=== PATIENT | male | born 1960 | race Caucasian/White ===

== ENCOUNTER 2018-11-30 21:37 | Emergency (ER) | payer SELFPAY ==
--- NOTE | 2018-11-30 21:53 | Event Note ---
ED Screening Note Date of service: 11/30/18 Time: 21:51 ED Screening Note: This is a 58 y.o. M. that presents to the ER with elevated blood pressure today. Reports headache, dizziness, and palpitations. PMH of HTN Patient states he didn't take lisinopril 20 mg yesterday. Nonsmoker This initial assessment/diagnostic orders/clinical plan/treatment(s) is/are subject to change based on patients health status, clinical progression and re- assessment by fellow clinical providers in the ED. Further treatment and workup at subsequent clinical providers discretion. Patient/guardian urged not to elope from the ED as their condition may be serious if not clinically assessed and managed. Initial orders include:
[2018-11-30 23:28] VITALS: BP 149/90
--- NOTE | 2018-11-30 23:30 | Emergency Department Report ---
ED General Adult HPI - General Chief complaint: High BP Stated complaint: HBP Time Seen by Provider: 11/30/18 21:48 Source: patient Mode of arrival: Ambulatory Limitations: No Limitations - History of Present Illness Initial comments: This is a 58 y.o. M. that presents to the ER with elevated blood pressure today. Denies headache, dizziness, and palpitations. PMH of HTN Patient states he didn't take lisinopril 20 mg yesterday. Nonsmoker states no symptoms at this time. states he just wants his bp checked denies any symptoms Onset/Timin -: days(s) Severity scale (0 -10): 1 Improves with: medication Worsens with: none Associated Symptoms: denies other symptoms Treatments Prior to Arrival: none - Related Data Home Medications Medication Instructions Recorded Confirmed Last Taken Lisinopril [Zestril TAB] 20 mg PO QDAY 03/19/15 03/19/15 Unknown Omeprazole [PriLOSEC] 20 mg PO QDAY 03/19/15 03/19/15 03/19/15 Previous Rx's Medication Instructions Recorded Last Taken Type Dicyclomine [Bentyl] 10 mg PO QID PRN #20 capsule 03/19/15 Unknown Rx Famotidine [Pepcid] 20 mg PO BID #10 tablet 03/19/15 Unknown Rx Lisinopril [Zestril TAB] 20 mg PO QDAY #14 tablet 03/19/15 Unknown Rx Allergies Allergy/AdvReac Type Severity Reaction Status Date / Time No Known Allergies Allergy Verified 03/19/15 04:44 ED Review of Systems ROS: Stated complaint: HBP Other details as noted in HPI Constitutional: denies: chills, fever Eyes: denies: eye pain, eye discharge, vision change ENT: denies: ear pain, throat pain Respiratory: denies: cough, shortness of breath, wheezing Cardiovascular: denies: chest pain, palpitations Endocrine: no symptoms reported Gastrointestinal: denies: abdominal pain, nausea, diarrhea Genitourinary: denies: urgency, dysuria Musculoskeletal: denies: back pain, joint swelling, arthralgia Skin: denies: rash, lesions Neurological: denies: headache, weakness, paresthesias Psychiatric: denies: anxiety, depression Hematological/Lymphatic: denies: easy bleeding, easy bruising ED Past Medical Hx - Past Medical History Previous Medical History?: Yes Hx Hypertension: Yes Additional medical history: BARRETTS ESOPHAGEAL - Surgical History Past Surgical History?: No - Social History Smoking Status: Never Smoker Substance Use Type: None - Medications Home Medications: Home Medications Medication Instructions Recorded Confirmed Last Taken Type Dicyclomine [Bentyl] 10 mg PO QID PRN #20 capsule 03/19/15 Unknown Rx Famotidine [Pepcid] 20 mg PO BID #10 tablet 03/19/15 Unknown Rx Lisinopril [Zestril TAB] 20 mg PO QDAY 03/19/15 03/19/15 Unknown History Lisinopril [Zestril TAB] 20 mg PO QDAY #14 tablet 03/19/15 Unknown Rx Omeprazole [PriLOSEC] 20 mg PO QDAY 03/19/15 03/19/15 03/19/15 History ED Physical Exam - General Limitations: No Limitations General appearance: alert, in no apparent distress - Head Head exam: Present: atraumatic, normocephalic - Eye Eye exam: Present: normal appearance - ENT ENT exam: Present: mucous membranes moist - Neck Neck exam: Present: normal inspection, full ROM. Absent: lymphadenopathy - Respiratory Respiratory exam: Present: normal lung sounds bilaterally. Absent: respiratory distress, wheezes, stridor, chest wall tenderness - Cardiovascular Cardiovascular Exam: Present: regular rate, normal rhythm, normal heart sounds. Absent: systolic murmur, diastolic murmur, rubs, gallop - GI/Abdominal GI/Abdominal exam: Present: soft, normal bowel sounds - Rectal Rectal exam: Present: deferred - Extremities Exam Extremities exam: Present: normal inspection - Back Exam Back exam: Present: normal inspection, full ROM. Absent: tenderness, CVA tenderness (R), CVA tenderness (L), muscle spasm, paraspinal tenderness, rash noted - Neurological Exam Neurological exam: Present: alert, oriented X3, CN II-XII intact, normal gait, reflexes normal - Psychiatric Psychiatric exam: Present: normal affect, normal mood - Skin Skin exam: Present: warm, dry, intact, normal color. Absent: rash ED Course Vital Signs 11/30/18 11/30/18 11/30/18 21:41 21:55 22:48 Temperature 97.3 F L Pulse Rate 77 71 Respiratory 18 16 16 Rate Blood Pressure 159/94 Blood Pressure 154/94 [Left] O2 Sat by Pulse 97 Oximetry ED Medical Decision Making - Medical Decision Making pt has fill bp rx provided by pcp bp is improved, there are no symptoms pt will follow up with pcp in 2-3 as scheduled. Critical care attestation.: If time is entered above; I have spent that time in minutes in the direct care of this critically ill patient, excluding procedure time. ED Disposition Clinical Impression: HTN (hypertension) Qualifiers: Hypertension type: essential hypertension Qualified Code(s): I10 - Essential (primary) hypertension Disposition: TO HOME OR SELFCARE Is pt being admited?: No Does the pt Need Aspirin: No Condition: Stable Instructions: Hypertension (ED) Additional Instructions: take medications as prescribed Referrals: ALISA DAILY MD [Primary Care Provider] - 3-5 Days Forms: Work/School Release Form(ED) Time of Disposition: 23:35
== END 2018-11-30 23:45 | disposition home or self-care (01) ==
LOC: ED 21:37
DX: I10 Essential (primary) hypertension (principal); Z98.890 Other specified postprocedural states

== ENCOUNTER 2018-12-14 06:00 | Emergency (ER) | payer SELFPAY ==
[2018-12-14 06:11] VITALS: BP 140/86
[2018-12-14 06:43] LABS: Basophils % (Auto) 0.4 % (0.0-1.8); Eosinophils # (Auto) 0.1 K/mm3 (0.0-0.4); Eosinophils % (Auto) 2.1 % (0.0-4.3); Hematocrit 46.7 % (35.5-45.6); Hemoglobin 15.8 gm/dl (11.8-15.2); Lymphocytes # (Auto) 2.6 K/mm3 (1.2-5.4); Lymphocytes % (Auto) 43.4 % (13.4-35.0); Mean Corpuscular HGB Conc 34 % (32-34); Mean Corpuscular Volume 98 fl (84-94); Monocytes # (Auto) 0.4 K/mm3 (0.0-0.8); Monocytes % (Auto) 7.2 % (0.0-7.3); Platelet Count 214 K/mm3 (140-440); Red Blood Count 4.77 M/mm3 (3.65-5.03); Red Cell Distribution Width 13.2 % (13.2-15.2)
[2018-12-14] MEDS ORDERED: NACL 0.9% 1000 ML 1,000 ML IV ONE (06:51)
[2018-12-14] MEDS ORDERED: TORADOL IV ONE ×2 (06:51→09:03)
[2018-12-14] MEDS ORDERED: ZOFRAN IV ONE (06:51)
[2018-12-14 07:01] LABS: Bilirubin,Urine NEG (Negative); Blood,Urine LG (Negative); Color,Urine Yellow (Yellow); Mucus,Urine FEW /HPF; Protein,Urine <15 mg/dL mg/dL (Negative); Urobilinogen,Urine < 2.0 mg/dL (<2.0)
[2018-12-14 07:02] LABS: RBC,Urine < 1.0 /HPF (0.0-6.0)
[2018-12-14 07:10] LABS: Alanine Aminotransferase 22 units/L (7-56); Albumin 4.2 g/dL (3.9-5); BUN/Creatinine Ratio 21; Blood Urea Nitrogen 19 mg/dL (9-20); Calcium 9.7 mg/dL (8.4-10.2); Hemolysis Index 4
[2018-12-14] MEDS ORDERED: BENTYL IM ONE (07:31)
[2018-12-14] MEDS ORDERED: PEPCID IV ONE (07:31)
[2018-12-14] MEDS ORDERED: REGLAN IV ONE (07:31)
--- NOTE | 2018-12-14 07:36 | Cat Scan Report ---
CT abdomen pelvis wo con INDICATION: Patient complains of LEFT lower abdominal pain with nausea and vomiting off and on x 1 w [place].. TECHNIQUE: All CT scans at this location are performed using the following dose modulation technique: Automated exposure control. CONTRAST: None. COMPARISON: None available. CT ABDOMEN: The right kidney contains a 2 mm nonobstructing stone 2.7 cm cyst at the upper pole. Mode rate distention of the left renal collecting system and ureter extends the level of a 6 mm stone just distal to the ureterovesical junction. The remaining parenchymal organs are unremarkable other than a benign-appearing 2.5 cm left hepatic cyst. Negative for abdominal mass, fluid collection or inflammation. The bowel is not dilated or thickened. The gallbladder contains calcified stones. CT PELVIS: Negative for more distal ureteral stone, pelvic fluid collection or inflammation. The appe ndix is normal. Moderate prostatomegaly has associated calcification. IMPRESSION: 1. 6 mm stone just distal to the left UVJ with moderate obstruction. 2. Nonobstructing right calyceal stone. 3. Calcified gallstones. 4. Moderate prostatomegaly. Signer Name: Gerber Recio MD Signed: 12/14/2018 7:32 AM Workstation Name: [employer]
--- NOTE | 2018-12-14 08:51 | Emergency Department Report ---
ED Abdominal Pain HPI - General Chief Complaint: Abdominal Pain Stated Complaint: LEFT ABD PAIN Time Seen by Provider: 12/14/18 07:22 Source: patient Mode of arrival: Ambulatory Limitations: No Limitations, Language Barrier - History of Present Illness Initial Comments: This is a 58-year-old male who presents to ED complaining of left-sided abdominal pain radiating towards the back that started about 5 months ago and has worsened in the past for 5 days. Patient states pain is throbbing in nature that's gone back and forth from his left frontal abdomen to his left flank and the back. Patient states pain is about a 8 out of 10 intensity. He denies any fever, nausea vomiting or diarrhea. MD Complaint: abdominal pain Severity scale (0 -10): 10 - Related Data Home Medications Medication Instructions Recorded Confirmed Last Taken Lisinopril [Zestril TAB] 20 mg PO QDAY 03/19/15 03/19/15 Unknown Omeprazole [PriLOSEC] 20 mg PO QDAY 03/19/15 03/19/15 03/19/15 Previous Rx's Medication Instructions Recorded Last Taken Type Dicyclomine [Bentyl] 10 mg PO QID PRN #20 capsule 03/19/15 Unknown Rx Famotidine [Pepcid] 20 mg PO BID #10 tablet 03/19/15 Unknown Rx Lisinopril [Zestril TAB] 20 mg PO QDAY #14 tablet 03/19/15 Unknown Rx Ketorolac [Toradol] 10 mg PO Q6H PRN #30 tablet 12/14/18 Unknown Rx Tamsulosin [Flomax] 0.4 mg PO QDAY #10 cap 12/14/18 Unknown Rx traMADol [Ultram 50 MG tab] 50 mg PO Q6HR PRN #15 tablet 12/14/18 Unknown Rx Allergies Allergy/AdvReac Type Severity Reaction Status Date / Time No Known Allergies Allergy Verified 03/19/15 04:44 ED Review of Systems ROS: Stated complaint: LEFT ABD PAIN Other details as noted in HPI Comment: All other systems reviewed and negative ED Past Medical Hx - Past Medical History Previous Medical History?: Yes Hx Hypertension: Yes Additional medical history: BARRETTS ESOPHAGEAL, CHRONIC GAStTRITIS - Surgical History Past Surgical History?: No - Social History Smoking Status: Never Smoker Substance Use Type: None - Medications Home Medications: Home Medications Medication Instructions Recorded Confirmed Last Taken Type Dicyclomine [Bentyl] 10 mg PO QID PRN #20 capsule 03/19/15 Unknown Rx Famotidine [Pepcid] 20 mg PO BID #10 tablet 03/19/15 Unknown Rx Lisinopril [Zestril TAB] 20 mg PO QDAY 03/19/15 03/19/15 Unknown History Lisinopril [Zestril TAB] 20 mg PO QDAY #14 tablet 03/19/15 Unknown Rx Omeprazole [PriLOSEC] 20 mg PO QDAY 03/19/15 03/19/15 03/19/15 History Ketorolac [Toradol] 10 mg PO Q6H PRN #30 tablet 12/14/18 Unknown Rx Tamsulosin [Flomax] 0.4 mg PO QDAY #10 cap 12/14/18 Unknown Rx traMADol [Ultram 50 MG tab] 50 mg PO Q6HR PRN #15 tablet 12/14/18 Unknown Rx ED Physical Exam - General Limitations: No Limitations, Language Barrier General appearance: alert, in no apparent distress - Head Head exam: Present: atraumatic, normocephalic - Eye Eye exam: Present: normal appearance - ENT ENT exam: Present: mucous membranes moist - Neck Neck exam: Present: normal inspection - Respiratory Respiratory exam: Present: normal lung sounds bilaterally. Absent: respiratory distress - Cardiovascular Cardiovascular Exam: Present: regular rate, normal rhythm. Absent: systolic murmur, diastolic murmur, rubs, gallop - GI/Abdominal GI/Abdominal exam: Present: soft, normal bowel sounds. Absent: distended, tenderness - Rectal Rectal exam: Present: deferred - Extremities Exam Extremities exam: Present: normal inspection - Back Exam Back exam: Present: normal inspection - Neurological Exam Neurological exam: Present: alert, oriented X3 - Psychiatric Psychiatric exam: Present: normal affect, normal mood - Skin Skin exam: Present: warm, dry, intact, normal color. Absent: rash ED Course Vital Signs 12/14/18 06:08 Temperature 98.9 F Pulse Rate 62 Respiratory 18 Rate Blood Pressure 140/86 O2 Sat by Pulse 98 Oximetry - Reevaluation(s) Reevaluation #1: 12/14/18 08:52 After patient received a liter of fluids, pain medications patient is reports to feeling better and states that his pain level is come down to 4 out of 10. P atient is sitting comfortably in his room. ED Medical Decision Making - Lab Data Result diagrams: 12/14/18 02:47 12/14/18 02:47 Laboratory Last Values WBC 5.9 K/mm3 (4.5-11.0) 12/14/18 02:47 RBC 4.77 M/mm3 (3.65-5.03) 12/14/18 02:47 Hgb 15.8 gm/dl (11.8-15.2) H 12/14/18 02:47 Hct 46.7 % (35.5-45.6) H 12/14/18 02:47 MCV 98 fl (84-94) H 12/14/18 02:47 MCH 33 pg (28-32) H 12/14/18 02:47 MCHC 34 % (32-34) 12/14/18 02:47 RDW 13.2 % (13.2-15.2) 12/14/18 02:47 Plt Count 214 K/mm3 (140-440) 12/14/18 02:47 Lymph % (Auto) 43.4 % (13.4-35.0) H 12/14/18 02:47 [place] % (Auto) 7.2 % (0.0-7.3) 12/14/18 02:47 Eos % (Auto) 2.1 % (0.0-4.3) 12/14/18 02:47 Baso % (Auto) 0.4 % (0.0-1.8) 12/14/18 02:47 Lymph # 2.6 K/mm3 (1.2-5.4) 12/14/18 02:47 [place] # 0.4 K/mm3 (0.0-0.8) 12/14/18 02:47 Eos # 0.1 K/mm3 (0.0-0.4) 12/14/18 02:47 Baso # 0.0 K/mm3 (0.0-0.1) 12/14/18 02:47 Seg Neutrophils % 46.9 % (40.0-70.0) 12/14/18 02:47 Seg Neutrophils # 2.8 K/mm3 (1.8-7.7) 12/14/18 02:47 Sodium 138 mmol/L (137-145) 12/14/18 02:47 Potassium 4.2 mmol/L (3.6-5.0) 12/14/18 02:47 Chloride 99.7 mmol/L (98-107) 12/14/18 02:47 Carbon Dioxide 25 mmol/L (22-30) 12/14/18 02:47 18 mmol/L 12/14/18 02:47 BUN 19 mg/dL (9-20) 12/14/18 02:47 0.9 mg/dL (0.8-1.5) 12/14/18 02:47 Estimated GFR > 60 ml/min 12/14/18 02:47 21 % 12/14/18 02:47 Glucose 144 mg/dL (75-100) H 12/14/18 02:47 Calcium 9.7 mg/dL (8.4-10.2) 12/14/18 02:47 0.90 mg/dL (0.1-1.2) 12/14/18 02:47 AST 19 units/L (5-40) 12/14/18 02:47 ALT 22 units/L (7-56) 12/14/18 02:47 68 units/L (35-129) 12/14/18 02:47 7.1 g/dL (6.3-8.2) 12/14/18 02:47 4.2 g/dL (3.9-5) 12/14/18 02:47 1.4 % 12/14/18 02:47 33 units/L (13-60) 12/14/18 02:47 Yellow (Yellow) 12/14/18 02:47 Slightly-cloudy (Clear) 12/14/18 02:47 5.0 (5.0-7.0) 12/14/18 02:47 Ur Specific [place] 1.019 (1.003-1.030) 12/14/18 02:47 <15 mg/dl mg/dL (Negative) 12/14/18 02:47 Neg mg/dL (Negative) 12/14/18 02:47 Neg mg/dL (Negative) 12/14/18 02:47 Lg (Negative) 12/14/18 02:47 Neg (Negative) 12/14/18 02:47 Neg (Negative) 12/14/18 02:47 < 2.0 mg/dL (<2.0) 12/14/18 02:47 Ur Leukocyte Esterase Neg (Negative) 12/14/18 02:47 2.0 /HPF (0.0-6.0) 12/14/18 02:47 < 1.0 /HPF (0.0-6.0) 12/14/18 02:47 U Epithel Cells (Auto) < 1.0 /HPF (0-13.0) 12/14/18 02:47 Few /HPF 12/14/18 02:47 - Radiology Data Radiology results: report reviewed, image reviewed cc: PAMELA HUGHES, KIZZY CT abdomen pelvis wo con INDICATION: Patient complains of LEFT lower abdominal pain with nausea and vomiting off and on x 1 week.. TECHNIQUE: All CT scans at this location are performed using the following dose modulation technique: Automated exposure control. CONTRAST: None. COMPARISON: None available. CT ABDOMEN: The right kidney contains a 2 mm nonobstructing stone 2.7 cm cyst at the upper pole. Moderate distention of the left renal collecting system and ureter extends the level of a 6 mm stone just distal to the ureterovesical junction. The remaining parenchymal organs are unremarkable other than a benign-appearing 2.5 cm left hepatic cyst. Negative for abdominal mass, fluid collection or inflammation. The bowel is not dilated or thickened. The gallbladder contains calcified stones. CT PELVIS: Negative for more distal ureteral stone, pelvic fluid collection or inflammation. The appendix is normal. Moderate prostatomegaly has associated calcification. IMPRESSION: 1. 6 mm stone just distal to the left UVJ with moderate obstruction. 2. Nonobstructing right calyceal stone. 3. Calcified gallstones. 4. Moderate prostatomegaly. Signer Name: Gerber Recio MD Signed: 12/14/2018 7:32 AM Workstation Name: [id number] Transcribed By: ES Dictated By: Gerber Recio MD Electronically Authenticated By: Gerber Recio MD Signed Date/Time: 12/14/18 0732 - Medical Decision Making 58-year-old male presents with renal stone causing abdominal pain. All labs within normal limits there is no evidence of leukocytosis. Patient reports feeling better after being medicated. Discussed patient it is important that he follows up with the urologist. Urologist referral given to patient. CT scan shows left right renal stones and gallbladder classified stones, see reported above. Discussed his findings with the patient. Discussed with patient follow-up this minute. Medicines are normal patient is stable patient is in no acute distress at this time. Critical care attestation.: If time is entered above; I have spent that time in minutes in the direct care of this critically ill patient, excluding procedure time. ED Disposition Clinical Impression: Acute abdominal pain, Renal calculus, bilateral Disposition: DC- TO HOME OR SELFCARE Is pt being admited?: No Does the pt Need Aspirin: No Condition: Stable Instructions: Kidney Stones (ED), Ureteroscopy (GEN), How to Strain Your Urine (ED) Additional Instructions: Make sure to follow up with the primary care physician as discussed. Make sure you follw up with the urologist. Take all your medications as you've been prescribed. If you have any worsening symptoms or develop new symptoms please return to ED immediately. Prescriptions: Tamsulosin [Flomax] 0.4 mg PO QDAY #10 cap Ketorolac [Toradol] 10 mg PO Q6H PRN #30 tablet PRN Reason: Pain traMADol [Ultram 50 MG tab] 50 mg PO Q6HR PRN #15 tablet PRN Reason: Pain Referrals: HAYLIE TERRELLROCIOSPENCER MD LEANNE [Primary Care Provider] - 3-5 Days TAMARA WINN MD [Staff Physician] - 3-5 Days Forms: Work/School Release Form(ED) Time of Disposition: 08:59
[2018-12-14] MEDS ORDERED: TORADOL ONE (09:07)
== END 2018-12-14 09:31 | disposition home or self-care (01) ==
LOC: ED 06:00
DX: N20.0 Calculus of kidney (principal); I10 Essential (primary) hypertension; Z79.899 Other long term (current) drug therapy
CPT/HCPCS: 36415; 74176; 80053; 81001; 83690; 85025; 96361; 96374; 96375; 96376; 99284; J1885; J2405; J2765; J7030; J0500

== ENCOUNTER 2020-02-07 14:43 | Emergency (ER) | payer SELFPAY ==
[2020-02-07 20:12] VITALS: BP 151/81
--- NOTE | 2020-02-07 20:20 | Emergency Department Report ---
- General Chief complaint: Extremity Problem,Nontraumatic Stated complaint: RT FOOT CELLULITIS Time Seen by Provider: 02/07/20 19:42 Source: patient Mode of arrival: Ambulatory Limitations: No Limitations - History of Present Illness Initial comments: Chief complaint: "I do not want the infection going into my body." HPI: This is a 59-year-old male who presents with right foot infection. He was evaluated by orthopedic surgeon with radiograph. He states that he did not have bone involvement or fracture. Patient's foot became red starting at the right pinky toe. Extending to the right lateral portion of the foot. Patient was seen by his primary physician. He was given 2 injections of antibiotics by 12 hours. He was not given prescription for antibiotics. 2 days ago purulent drainage began at the right toe. Patient has history of hypertension, renal calculus. No history of diabetes. MD complaint: rash, abscess/boil, discoloration -: Gradual, week(s) (1) Location: R foot Severity: mild Consistency: constant Improves with: none Worsens with: none Associated symptoms: denies other symptoms - Related Data Home Medications Medication Instructions Recorded Confirmed Last Taken Omeprazole [PriLOSEC] 20 mg PO QDAY 03/19/15 03/19/15 03/19/15 lisinopriL [Zestril TAB] 20 mg PO QDAY 03/19/15 03/19/15 Unknown Previous Rx's Medication Instructions Recorded Last Taken Type Dicyclomine [Bentyl] 10 mg PO QID PRN #20 capsule 03/19/15 Unknown Rx Famotidine [Pepcid] 20 mg PO BID #10 tablet 03/19/15 Unknown Rx lisinopriL [Zestril TAB] 20 mg PO QDAY #14 tablet 03/19/15 Unknown Rx Ketorolac [Toradol] 10 mg PO Q6H PRN #30 tablet 12/14/18 Unknown Rx Tamsulosin [Flomax] 0.4 mg PO QDAY #10 cap 12/14/18 Unknown Rx traMADoL [Ultram 50 MG tab] 50 mg PO Q6HR PRN #15 tablet 12/14/18 Unknown Rx Sulfamethoxazole/Trimethoprim 1 each PO BID 10 Days #20 tablet 02/07/20 Unknown Rx [Bactrim DS TAB] cephALEXin [Keflex] 500 mg PO TID 10 Days #30 cap 02/07/20 Unknown Rx Allergies Allergy/AdvReac Type Severity Reaction Status Date / Time No Known Allergies Allergy Verified 03/19/15 04:44 Abscess Boil HPI - HPI Chief Complaint: Extremity Problem,Nontraumatic Stated Complaint: RT FOOT CELLULITIS Time Seen by Provider: 02/07/20 19:42 Duration: >1 Week Location: Lower Extremity Severity: Mild History: Yes Purulent Drainage, No Fever, No Pain, No Numbness, No Foreign Body, No Previous History, No Insect Bite Home Medications: Home Medications Medication Instructions Recorded Confirmed Last Taken Omeprazole [PriLOSEC] 20 mg PO QDAY 03/19/15 03/19/15 03/19/15 lisinopriL [Zestril TAB] 20 mg PO QDAY 03/19/15 03/19/15 Unknown Previous Rx's Medication Instructions Recorded Last Taken Type Dicyclomine [Bentyl] 10 mg PO QID PRN #20 capsule 03/19/15 Unknown Rx Famotidine [Pepcid] 20 mg PO BID #10 tablet 03/19/15 Unknown Rx lisinopriL [Zestril TAB] 20 mg PO QDAY #14 tablet 03/19/15 Unknown Rx Ketorolac [Toradol] 10 mg PO Q6H PRN #30 tablet 12/14/18 Unknown Rx Tamsulosin [Flomax] 0.4 mg PO QDAY #10 cap 12/14/18 Unknown Rx traMADoL [Ultram 50 MG tab] 50 mg PO Q6HR PRN #15 tablet 12/14/18 Unknown Rx Sulfamethoxazole/Trimethoprim 1 each PO BID 10 Days #20 tablet 02/07/20 Unknown Rx [Bactrim DS TAB] cephALEXin [Keflex] 500 mg PO TID 10 Days #30 cap 02/07/20 Unknown Rx Allergies/Adverse Reactions: Allergies Allergy/AdvReac Type Severity Reaction Status Date / Time No Known Allergies Allergy Verified 03/19/15 04:44 ED Review of Systems ROS: Stated complaint: RT FOOT CELLULITIS Other details as noted in HPI Constitutional: denies: fever, malaise Respiratory: denies: cough, shortness of breath Gastrointestinal: denies: abdominal pain, nausea, vomiting Skin: rash, lesions ED Past Medical Hx - Past Medical History Previous Medical History?: Yes Hx Hypertension: Yes Additional medical history: BARRETTS ESOPHAGEAL, CHRONIC GAStTRITIS, HIATAL HERNIA - Social History Smoking Status: Former Smoker Substance Use Type: None - Medications Home Medications: Home Medications Medication Instructions Recorded Confirmed Last Taken Type Dicyclomine [Bentyl] 10 mg PO QID PRN #20 capsule 03/19/15 Unknown Rx Famotidine [Pepcid] 20 mg PO BID #10 tablet 03/19/15 Unknown Rx Omeprazole [PriLOSEC] 20 mg PO QDAY 03/19/15 03/19/15 03/19/15 History lisinopriL [Zestril TAB] 20 mg PO QDAY 03/19/15 03/19/15 Unknown History lisinopriL [Zestril TAB] 20 mg PO QDAY #14 tablet 03/19/15 Unknown Rx Ketorolac [Toradol] 10 mg PO Q6H PRN #30 tablet 12/14/18 Unknown Rx Tamsulosin [Flomax] 0.4 mg PO QDAY #10 cap 12/14/18 Unknown Rx traMADoL [Ultram 50 MG tab] 50 mg PO Q6HR PRN #15 tablet 12/14/18 Unknown Rx Sulfamethoxazole/Trimethoprim 1 each PO BID 10 Days #20 tablet 02/07/20 Unknown Rx [Bactrim DS TAB] cephALEXin [Keflex] 500 mg PO TID 10 Days #30 cap 02/07/20 Unknown Rx ED Physical Exam - General Limitations: No Limitations General appearance: alert, in no apparent distress - Head Head exam: Present: atraumatic, normocephalic - Eye Eye exam: Present: normal appearance - Respiratory Respiratory exam: Absent: respiratory distress - Neurological Exam Neurological exam: Present: alert, oriented X3 - Psychiatric Psychiatric exam: Present: normal affect, normal mood - Skin Skin exam: Present: other (Right foot: 3 pustules right lateral volar region of right fifth digit with mild erythema along the lateral portion of the right foot) ED Course Vital Signs 02/07/20 02/07/20 02/07/20 14:54 19:38 19:46 Temperature 98 F Pulse Rate 59 L Respiratory 18 Rate Blood Pressure 152/73 Blood Pressure 139/89 [Right] O2 Sat by Pulse 98 100 99 Oximetry 02/07/20 20:01 Temperature Pulse Rate Respiratory Rate Blood Pressure 151/81 Blood Pressure [Right] O2 Sat by Pulse 98 Oximetry ED Medical Decision Making - Medical Decision Making Clinical impression: Mild foot cellulitis with small draining toe abscess. Patient prescribed Keflex and Bactrim. Refer to parts counter sales person. I used Welsh language line principal statistical programmer [phone] to obtain history and provide discharge education. Critical care attestation.: If time is entered above; I have spent that time in minutes in the direct care of this critically ill patient, excluding procedure time. ED Disposition Clinical Impression: Cellulitis of right foot, Abscess of toe of right foot Disposition: - TO HOME OR SELFCARE Is pt being admited?: No Does the pt Need Aspirin: No Condition: Stable Instructions: Cellulitis (ED), Abscess (ED) Prescriptions: Sulfamethoxazole/Trimethoprim [Bactrim DS TAB] 1 each PO BID 10 Days #20 tablet cephALEXin [Keflex] 500 mg PO TID 10 Days #30 cap Referrals: LESA MERINO DPM [Staff Physician] - 3-5 Days Forms: Work/School Release Form(ED) Print Language: GERMAN
== END 2020-02-07 20:45 | disposition home or self-care (01) ==
LOC: ED 14:43
DX: L03.115 Cellulitis of right lower limb (principal); L02.611 Cutaneous abscess of right foot
CPT/HCPCS: 99281

== ENCOUNTER 2020-10-01 05:26 | Emergency (ER) | payer SELFPAY ==
[2020-10-01] MEDS ORDERED: ASPIRIN 325 MG TAB PO ONE (05:40)
[2020-10-01 06:08] LABS: Basophils % (Auto) 0.6 % (0.0-1.8); Eosinophils # (Auto) 0.1 K/mm3 (0.0-0.4); Eosinophils % (Auto) 1.9 % (0.0-4.3); Hemoglobin 14.8 gm/dl (11.8-15.2); Lymphocytes # (Auto) 2.2 K/mm3 (1.2-5.4); Lymphocytes % (Auto) 29.7 % (13.4-35.0); Mean Corpuscular HGB Conc 33 % (32-34); Mean Corpuscular Volume 97 fl (84-94); Monocytes # (Auto) 0.6 K/mm3 (0.0-0.8); Monocytes % (Auto) 8.1 % (0.0-7.3); Platelet Count 230 K/mm3 (140-440); Red Blood Count 4.63 M/mm3 (3.65-5.03); Red Cell Distribution Width 13.9 % (13.2-15.2)
[2020-10-01 06:24] LABS: Alanine Aminotransferase 27 units/L (7-56); Albumin 4.5 g/dL (3.9-5); BUN/Creatinine Ratio 20; Blood Urea Nitrogen 20 mg/dL (9-20); Hemolysis Index 2
--- NOTE | 2020-10-01 06:24 | XRay Report ---
CHEST 2 VIEWS INDICATION / CLINICAL INFORMATION: chestpain. COMPARISON: 04/04/2019 FINDINGS: SUPPORT DEVICES: None. HEART / MEDIASTINUM: No significant abnormality. LUNGS / PLEURA: No significant pulmonary or pleural abnormality. No pneumothorax. ADDITIONAL FINDINGS: No significant additional findings. IMPRESSION: 1. No acute findings. No interval change. Signer Name: Chandrika Verdugo MD Signed: 10/01/2020 6:19 AM Workstation Name: [id number]
--- NOTE | 2020-10-01 09:29 | Emergency Department Report ---
ED Chest Pain HPI - General Chief Complaint: Chest Pain Stated Complaint: CHEST PAIN Time Seen by Provider: 10/01/20 09:23 Source: patient, RN notes reviewed Mode of arrival: Ambulatory Limitations: Language Barrier (site interpreter: [id number]) - History of Present Illness Initial Comments: The patient was evaluated in the emergency department for symptoms described in the history of present illness. He/she was evaluated in the context of the global COVID-19 pandemic, which necessitated consideration that the patient might be at risk for infection with the virus that causes COVID-19. Institutional protocols and algorithms that pertain to the evaluation of patients at risk for COVID-19 are in a state of rapid change based on information released by regulatory bodies including the CDC and federal and state organizations. These policies and algorithms were followed during the patient's care in the emergency department. Please note that these policies, procedures and recommendations changed on a rapid basis. 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 He presents to the ER today with complaint of nontraumatic left-sided chest pain, which radiated to his left shoulder and back yesterday, and was associated with hypertension, preceded by hypertension, without vomiting, diaphoresis, or exertional shortness of breath. The patient reports that he was in his usual state of health last night, when he felt like his blood pressure was high, and therefore checked it at home, found it to be elevated, and took his home blood pressure medication, and then an additional half tablet of blood pressure medication. Prior to this event, he denies preceding hea dache, neck pain, chest pain, abdominal pain, shortness of breath, vomiting, diaphoresis. He is still having pain and discomfort, although he feels like it improved, and he feels like his discomfort is qualitatively similar to prior episodes of gastritis and Mcmillan's esophagitis. He denies travel, surgery, leg pain, leg swelling, immobilization. MD Complaint: chest pain, other -: Gradual, hour(s) Onset: during rest Pain Location: left chest Pain Radiation: LUE, back Severity: mild Severity scale (0 -10): 4 Quality: other (Patient does not describe qualitative nature of symptoms) Consistency: constant Improves With: nothing Worsens With: nothing re: denies: nausea, vomting, diaphoresis Aspirin use within the Past 7 Days: (0) No - Related Data On Oral Contraceptives: No Home Medications Medication Instructions Recorded Confirmed Last Taken Omeprazole [PriLOSEC] 20 mg PO QDAY 03/19/15 03/19/15 03/19/15 lisinopriL [Zestril TAB] 20 mg PO QDAY 03/19/15 03/19/15 Unknown Previous Rx's Medication Instructions Recorded Last Taken Type Famotidine [Pepcid] 20 mg PO BID #10 tablet 03/19/15 Unknown Rx lisinopriL [Zestril TAB] 20 mg PO QDAY #14 tablet 03/19/15 Unknown Rx Tamsulosin [Flomax] 0.4 mg PO QDAY #10 cap 12/14/18 Unknown Rx Aspirin [Adult Aspirin] 81 mg PO QDAY #30 tablet. 10/01/20 Unknown Rx Omeprazole Magnesium [PriLOSEC Otc] 20 mg PO QDAY #30 tablet. 10/01/20 Unknown Rx Allergies Allergy/AdvReac Type Severity Reaction Status Date / Time No Known Allergies Allergy Verified 03/19/15 04:44 Heart Score - HEART Score History: Slightly suspicious EKG: Non-specific Age: 45-65 Risk factors: 1-2 risk factors Troponin: < normal limit HEART Score: 3 - EKG Read Time Time EKG Completed: 05:33 EKG Read Time: 05:41 - Critical Actions Critical Actions: 0-3 pts:0.9-1.7%risk of adverse cardiac event.Candidate for discharge ED Review of Systems ROS: Stated complaint: CHEST PAIN Other details as noted in HPI Constitutional: denies: fever Eyes: denies: vision change ENT: denies: epistaxis Respiratory: denies: cough, wheezing Cardiovascular: chest pain Gastrointestinal: denies: abdominal pain, nausea, vomiting, hematemesis, melena, hematochezia Musculoskeletal: back pain Neurological: denies: weakness Hematological/Lymphatic: denies: easy bleeding ED Past Medical Hx - Past Medical History Previous Medical History?: Yes Hx Hypertension: Yes Hx GERD: Yes Additional medical history: BARRETTS ESOPHAGEAL, CHRONIC GAStTRITIS, HIATAL HERNIA - Surgical History Past Surgical History?: No - Social History Smoking Status: Never Smoker Substance Use Type: None - Medications Home Medications: Home Medications Medication Instructions Recorded Confirmed Last Taken Type Famotidine [Pepcid] 20 mg PO BID #10 tablet 03/19/15 Unknown Rx Omeprazole [PriLOSEC] 20 mg PO QDAY 03/19/15 03/19/15 03/19/15 History lisinopriL [Zestril TAB] 20 mg PO QDAY 03/19/15 03/19/15 Unknown History lisinopriL [Zestril TAB] 20 mg PO QDAY #14 tablet 03/19/15 Unknown Rx Tamsulosin [Flomax] 0.4 mg PO QDAY #10 cap 12/14/18 Unknown Rx Aspirin [Adult Aspirin] 81 mg PO QDAY #30 tablet. 10/01/20 Unknown Rx Omeprazole Magnesium [PriLOSEC Otc] 20 mg PO QDAY #30 tablet. 10/01/20 Unknown Rx ED Physical Exam - General Limitations: Language Barrier General appearance: alert, in no apparent distress - Head Head exam: Present: atraumatic, normocephalic - Eye Eye exam: Present: normal appearance, EOMI. Absent: nystagmus - ENT ENT exam: Present: normal exam, normal orophraynx, mucous membranes moist, normal external ear exam - Neck Neck exam: Present: normal inspection, full ROM. Absent: tenderness, meningismus - Respiratory Respiratory exam: Present: normal lung sounds bilaterally. Absent: respiratory distress, wheezes, rales, rhonchi, stridor, chest wall tenderness, decreased breath sounds - Cardiovascular Cardiovascular Exam: Present: regular rate, normal rhythm, normal heart sounds. Absent: bradycardia, tachycardia, irregular rhythm, systolic murmur, diastolic murmur, rubs, gallop - GI/Abdominal GI/Abdominal exam: Present: soft. Absent: distended, tenderness, guarding, rebound, rigid, pulsatile mass - Rectal Rectal exam: Present: deferred - Extremities Exam Extremities exam: Present: normal inspection, full ROM, other (2+ pulses noted in the bilateral upper and lower extremities. There is no palpable cord. negative Homans sign. Muscular compartments are soft. The pelvis is stable.). Absent: pedal edema, calf tenderness - Back Exam Back exam: Present: normal inspection, full ROM. Absent: tenderness, CVA tenderness (R), CVA tenderness (L), paraspinal tenderness, vertebral tenderness - Neurological Exam Neurological exam: Present: alert, oriented X3, normal gait, other (No facial droop. Tongue midline. Extraocular movements intact bilaterally. Facial sensation intact to light touch in V1, V2, V3 distribution bilaterally. 5 and a 5 strength in 4 extremities. Sensation intact to light touch in 4 extremitie s.). Absent: motor sensory deficit - Psychiatric Psychiatric exam: Present: normal affect, normal mood - Skin Skin exam: Present: warm, dry, intact, normal color. Absent: rash ED Course Vital Signs 10/01/20 10/01/20 10/01/20 05:49 09:30 09:46 Temperature 98.6 F Pulse Rate 69 52 L Respiratory 18 18 14 Rate Blood Pressure 149/98 Blood Pressure 144/93 [Left] O2 Sat by Pulse 96 96 99 Oximetry 10/01/20 10/01/20 10/01/20 10:00 10:16 10:30 Temperature Pulse Rate 50 L 58 L 65 Respiratory 14 14 13 Rate Blood Pressure 135/83 135/83 135/83 Blood Pressure [Left] O2 Sat by Pulse 96 98 98 Oximetry 10/01/20 10:36 Temperature Pulse Rate 64 Respiratory Rate Blood Pressure Blood Pressure [Left] O2 Sat by Pulse Oximetry - Reevaluation(s) Reevaluation #1: 10/01/20 11:33 Differential diagnosis, including but not limited to: GERD, gastritis, hiatal hernia, pneumonia, coronary artery disease, pulmonary embolism Assessment and plan: 60-year-old gentleman, who is not currently tachycardic, tachypneic or hypoxic, who denies DVT and pulmonary embolism risk factors, who is low risk by Wells criteria for pulmonary embolism, D-dimer negative EKG unchanged x2, troponin negative x 2, symptoms present for approximately 12 to 16 hours. Patient has equal pulses in the upper and lower extremities, no pulsatile abdominal mass, and an unremarkable x-ray of the chest, therefore, aortic disease is very unlikely. Not especially hypertensive in the emergency room. Patient at low risk for major adverse cardiac event as per heart score. X-ray the chest unremarkable. Has a known history of Mcmillan's esophagitis. Resting comfortably in stretcher, and in no acute distress. I find coronary artery disease of significance to be unlikely. 10/01/20 13:00 Patient resting comfortably in no acute distress. Patient had a treadmill exercise stress test today, which was negative for acute findings, interpreted by Dr. Batool Doherty Patient does not appear to have an emergent medical condition at this time which would require admission or hospitalization. ALLAN score - Allan Score Age > 65: (0) No Aspirin use within the Past 7 Days: (0) No 2 or more Angina events in past 24 hrs: (0) No Known CAD with more than 50% Stenosis: (0) No Elevated Cardiac Markers: (0) No ST Deviation Greater than 0.5mm: (0) No ED Medical Decision Making - Lab Data Result diagrams: 10/01/20 05:41 10/01/20 05:41 Vital Signs 10/01/20 10/01/20 10/01/20 05:49 09:30 09:46 Temperature 98.6 F Pulse Rate 69 52 L Respiratory 18 18 14 Rate Blood Pressure 149/98 Blood Pressure 144/93 [Left] O2 Sat by Pulse 96 96 99 Oximetry 10/01/20 10/01/20 10/01/20 10:00 10:16 10:30 Temperature Pulse Rate 50 L 58 L 65 Respiratory 14 14 13 Rate Blood Pressure 135/83 135/83 135/83 Blood Pressure [Left] O2 Sat by Pulse 96 98 98 Oximetry 10/01/20 10:36 Temperature Pulse Rate 64 Respiratory Rate Blood Pressure Blood Pressure [Left] O2 Sat by Pulse Oximetry Labs 10/01/20 10/01/20 10/01/20 05:41 05:41 09:28 WBC 7.6 RBC 4.63 Hgb 14.8 Hct 45.0 MCV 97 H MCH 32 MCHC 33 RDW 13.9 Plt Count 230 Lymph % (Auto) 29.7 Liberty % (Auto) 8.1 H Eos % (Auto) 1.9 Baso % (Auto) 0.6 Lymph # (Auto) 2.2 [place] # (Auto) 0.6 Eos # (Auto) 0.1 Baso # (Auto) 0.0 Seg Neutrophils % 59.7 Seg Neutrophils # 4.5 D-Dimer Sodium 138 Potassium 4.6 Chloride 101.9 Carbon Dioxide 25 Anion Gap 16 BUN 20 Creatinine 1.0 Estimated GFR > 60 BUN/Creatinine Ratio 20 Glucose 106 H Calcium 11.0 H Magnesium Total Bilirubin 0.50 AST 22 ALT 27 Alkaline Phosphatase 79 Total Creatine Kinase Troponin T < 0.010 < 0.010 Total Protein 6.5 Albumin 4.5 Albumin/Globulin Ratio 2.3 10/01/20 10/01/20 09:39 09:39 WBC RBC Hgb Hct MCV MCH MCHC RDW Plt Count Lymph % (Auto) Liberty % (Auto) Eos % (Auto) Baso % (Auto) Lymph # (Auto) [place] # (Auto) Eos # (Auto) Baso # (Auto) Seg Neutrophils % Seg Neutrophils # D-Dimer < 135.00 Sodium Potassium Chloride Carbon Dioxide Anion Gap BUN Creatinine Estimated GFR BUN/Creatinine Ratio Glucose Calcium Magnesium 2.00 Total Bilirubin AST ALT Alkaline Phosphatase Total Creatine Kinase 116 Troponin T Total Protein Albumin Albumin/Globulin Ratio - EKG Data -: EKG Interpreted by Me EKG shows normal: sinus rhythm Rate: normal - EKG Data When compared to previous EKG there are: no significant change Interpretation: unchanged when compared t 10/01/20 11:32 EKG #1, interpreted at 05: 41 Sinus rhythm, 62 bpm. Normal axis, normal intervals, left ventricular hypertrophy, and motion artifact. Not a STEMI. Unchanged from prior EKG from 04/22/2019. EKG #2 unchanged from prior, with the exception of bradycardic rate, and NM int erval 209 ms. LVH is unchanged. - Radiology Data Radiology results: pending, report reviewed, [place] [address] XRay Report Signed Patient: HORTENCIA JOHNS MR#: [id number] : 1960 Acct:[id number] Age/Sex: 60 / M ADM Date: 10/01/20 Loc: ED At [facility] Dr: Ordering Physician: ED MD DALE Date of Service: 10/01/20 Procedure(s): XR chest routine 2V Accession Number(s): [id number] cc: ED MD DALE Fluoro Time In Minutes: CHEST 2 VIEWS INDICATION / CLINICAL INFORMATION: chestpain. COMPARISON: 04/04/2019 FINDINGS: SUPPORT DEVICES: None. HEART / MEDIA STINUM: No significant abnormality. LUNGS / PLEURA: No significant pulmonary or pleural abnormality. No pneumothorax. ADDITIONAL FINDINGS: No significant additional findings. IMPRESSION: 1. No acute findings. No interval change. Signer Name: Chandrika Verdugo MD Signed: 10/01/2020 6:19 AM Workstation Name: [id number] Transcribed By: Dictated By: Chandrika Verdugo MD Electronically Authenticated By: Chandrika Verdugo MD Signed Date/Time: 10/01/20618 DD/ 7 Critical care attestation.: If time is entered above; I have spent that time in minutes in the direct care of this critically ill patient, excluding procedure time. ED Disposition Clinical Impression: History of chest pain, History of Mcmillan's esophagus, History of hypertension Disposition: - TO HOME OR SELFCARE Is pt being admited?: No Does the pt Need Aspirin: No Condition: Good Instructions: Hypertension, Adult Additional Instructions: Please continue current outpatient medications. Minimize/avoid consumption of Motrin, ibuprofen, Naprosyn, Aleve, alcohol, heavy and spicy foods. Take the antacid medication as directed, aspirin as directed, follow-up with a zinc furnace charger within the next 3 to 5 days. Follow-up with a primary care doctor within the next month. Follow-up with your GI physician/naturopathic oncology provider within the next month. Please return to the emergency room right away with new pain, worsened pain, migration of pain, projectile vomiting, change in mental status, confusion, inability to tolerate liquid feeds, new, worsened or different symptoms not present on the initial emergency room evaluation. Contine con los medicamentos actuales para pacientes ambulatorios. Minimice / evite el consumo de Motrin, ibuprofeno, Naprosyn, Aleve, alcohol, comidas pesad as y picantes. Salome el medicamento anticido segn las indicaciones, aspirina segn las indicaciones, cristina un seguimiento con un cardilogo dentro de los prximos 3 a 5 barnard. Cristina un seguimiento con un mdico de atencin primaria abby el prximo mes. Cristina un seguimiento con castellanos mdico gastrointestinal / gastroenterlogo dentro del prximo mes. Regrese a la salo de emergencias de inmediato con un nuevo dolor, empeoramiento del dolor, migracin del dolor, vmitos en proyectil, cambio en el estado mental, confusin, incapacidad para tolerar alimentos lquidos, sntomas nuevos, empeorados o diferentes que no estn presentes en la evaluacin inicial de la salo de emergencias. Prescriptions: Aspirin [Adult Aspirin] 81 mg PO QDAY #30 tablet. Omeprazole Magnesium [PriLOSEC Otc] 20 mg PO QDAY #30 tablet. Referrals: KAM FERRELL MD [Staff Physician] - as needed (Primary care) PAULO WILLIS MD [Staff Physician] - 3-5 Days (Cardiology) UJANJO CASON MD [Staff Physician] - as needed (Gastroenterology) Print Language: [place] CITIZEN
[2020-10-01] MEDS ORDERED: SUCRALFATE 1 GM/10 ML ORAL LIQD PO ONE (09:37)
[2020-10-01] MEDS ORDERED: FAMOTIDINE 20 MG TAB PO ONE (09:37)
[2020-10-01] MEDS ORDERED: ACETAMINOPHEN 325 MG TAB PO ONE (09:37)
[2020-10-01 14:26] VITALS: BP 128/87
--- NOTE | 2020-10-07 11:13 | Electrocardiograph Report ---
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
--- NOTE | 2020-10-07 11:15 | Electrocardiograph Report ---
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
--- NOTE | 2020-10-07 13:06 | Treadmill Report ---
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
== END 2020-10-01 13:30 | disposition home or self-care (01) ==
LOC: ED 05:26
DX: R07.89 Other chest pain (principal); I10 Essential (primary) hypertension; K21.9 Gastro-esophageal reflux disease without esophagitis; Z87.19 Personal history of other diseases of the digestive system; Z79.899 Other long term (current) drug therapy; Z79.82 Long term (current) use of aspirin
CPT/HCPCS: 36415; 71046; 80053; 82550; 83735; 84484; 85025; 85379; 93005; 93017; 99284

== ENCOUNTER 2021-09-02 00:02 | Emergency (ER) | payer SELFPAY | END 2021-09-02 01:15 | disposition left against medical advice (07) | LOC: ED 00:02 | DX: R07.9 Chest pain, unspecified (principal); Z53.21 Procedure and treatment not carried out due to patient leaving prior to being seen by health care provider ==

== ENCOUNTER 2021-09-06 07:23 | Day surgery (SDC) | payer OTHER ==
[2021-09-06] MEDS ORDERED: ceFAZolin/STERILE WATER 2 GM/20 ML SYRINGE IV NR (08:00)
[2021-09-06] MEDS ORDERED: LACTATED RINGERS 1,000 ML ONE (08:42)
[2021-09-06] MEDS ORDERED: LACTATED RINGERS 1,000 ML IV SCH (09:15)
[2021-09-06] MEDS ORDERED: HYDROmorphone 1 MG/1 ML INJ IV PRN (09:15)
--- NOTE | 2021-09-06 09:20 | Anesthesia Day of Surgery ---
Anesthesia Day of Surgery - Day of Surgery Patient Examined: Yes Patient H&P Reviewed: Yes Patient is NPO: Yes
--- NOTE | 2021-09-06 09:21 | Anesthesia Consultation ---
Anesthesia Consult and Med Hx Date of service: 09/06/21 - Airway Anesthetic Teeth Evaluation: Good ROM Head & Neck: Adequate Mental/Hyoid Distance: Adequate Mallampati Class: Class II Intubation Access Assessment: Good - Pre-Operative Health Status ASA Pre-Surgery Classification: ASA2 Proposed Anesthetic Plan: General - Pulmonary Hx Smoking: No Hx Sleep Apnea: No (PRIYA PRE SCREEN HIGH RISK) - Cardiovascular System Hx Hypertension: Yes (X 7 YRS) - Gastrointestinal Hx Gastroesophageal Reflux Disease: Yes - Hematic Hx Anemia: No - Other Systems Hx Cancer: No
[2021-09-06] MEDS ORDERED: LIDOCAINE (1%) 10 MG/1 ML VIAL 20 ML MDV ONE (09:35)
[2021-09-06] MEDS ORDERED: BUPIVACAINE/PF (0.5%) 5 MG/1 ML 30 ML VIAL INFILTRATI ONE ×2 (09:35→10:33)
[2021-09-06] MEDS ORDERED: SODIUM CHLORIDE 0.9% 250ML 0 ML ONE (09:36)
[2021-09-06] MEDS ORDERED: fentaNYL 100 MCG/2 ML INJ ONE (09:39)
[2021-09-06] MEDS ORDERED: propofoL 200 MG/20 ML VIAL IV ONE (09:39)
[2021-09-06] MEDS ORDERED: ONDANSETRON 4 MG/2 ML INJ ONE (09:40)
[2021-09-06] MEDS ORDERED: LIDOCAINE MPF (2%) 20 MG/1 ML VIAL 5 ML ONE (09:40)
[2021-09-06] MEDS ORDERED: MIDAZOLAM 2 MG/2 ML INJ ONE (09:50)
[2021-09-06] MEDS ORDERED: CELECOXIB 200 MG CAP PO NR (10:00)
[2021-09-06] MEDS ORDERED: ACETAMINOPHEN 500 MG TAB PO ONE (10:00)
[2021-09-06] MEDS ORDERED: MIDAZOLAM 2 MG/2 ML INJ IV NR (10:00)
[2021-09-06] MEDS ORDERED: MAGNESIUM OXIDE 400 MG TAB PO ONE (10:30)
[2021-09-06] MEDS ORDERED: ONDANSETRON 4 MG/2 ML INJ IV PRN (10:30)
[2021-09-06] MEDS ORDERED: LIDOCAINE (1%) 10 MG/1 ML VIAL 20 ML MDV INFILTRATI ONE (10:33)
--- NOTE | 2021-09-06 10:56 | Short Stay Summary ---
Short Stay Documentation Date of service: 09/06/21 - History Principal diagnosis: symptomatic cholelithiasis H&P: obtained from office - Allergies and Medications Current Medications: Allergies No Known Allergies Allergy (Verified 03/19/15 04:44) Home Medications Medication Instructions Recorded Confirmed Last Taken Type Famotidine [Pepcid] 20 mg PO QHS 09/01/21 09/01/21 Unknown History lisinopriL [Zestril TAB] 20 mg PO QHS 09/01/21 09/01/21 Unknown History Active Medications Cefazolin Sodium (Cefazolin/Sterile Water 2 Gm/20 Ml Syringe) 2 gm IV PREOP NR Stop: 09/06/21 23:59 Celecoxib (Celecoxib 200 Mg Cap) 200 mg PO PREOP NR Stop: 09/06/21 23:59 Hydromorphone HCl (Hydromorphone 1 Mg/1 Ml Inj) 0.25 mg IV Q10MIN PRN PRN Reason: Pain, Moderate (4-6) Hydromorphone HCl (Hydromorphone 1 Mg/1 Ml Inj) 0.5 mg IV Q10MIN PRN PRN Reason: Pain , Severe (7-10) Lactated Ringer's (Lactated Ringers) 1,000 mls @ 125 mls/hr IV DIRECT VESNA Midazolam HCl (Midazolam 2 Mg/2 Ml Inj) 2 mg IV PREOP NR Stop: 09/06/21 23:59 Ondansetron HCl (Ondansetron 4 Mg/2 Ml Inj) 4 mg IV ONCE PRN PRN Reason: Nausea And Vomiting - Brief post op/procedure progress note Date of procedure: 09/06/21 Pre-op diagnosis: symptomatic cholelithiasis Post-op diagnosis: other (chronic calculus cholecystitis) Procedure: lap cholecystectomy Anesthesia: GETA, local Findings: Thickening at gallbladder neck with chronic inflammation Obstruction of gallbladder - hydrops Surgeon: DEMETRICE MARIN (Water Inspector: Nikia Monte) Estimated blood loss: minimal Pathology: list (gallbladder) Specimen disposition: to lab Condition: stable - Hospital course Hospital course: Pt observed in PACU and discharged to home in stable condition when criteria met - Disposition Condition at discharge: Good Disposition: 01 HOME / SELF CARE / HOMELESS Short Stay Discharge Plan Activity: other (no heavy lifting) Diet: regular Wound: open to air, per your surgeon's advice Additional Instructions: SEE PRINTED INSTRUCTIONS Follow up with: PRIMARY CARE, [Primary Care Provider] - 7 Days DEMETRICE MARIN DO [Staff Physician] - 14 Days Prescriptions: HYDROcodone/APAP 5-325 [[place] 5/325] 1 each PO Q6HR PRN #15 tablet PRN Reason: Pain
[2021-09-06] MEDS: HYDROmorphone 1 MG/1 ML INJ IV PRN ×2 (11:35→11:50)
[2021-09-06] MEDS ORDERED: HYDROcodone/ACETAMINOPHEN 5-325 MG TAB PO ONE (13:00)
--- NOTE | 2021-09-06 13:50 | Post Anesthesia Evaluation ---
- Post Anesthesia Evaluation Patient Participated: Yes Airway Patent: Yes Stable Respiratory Function: Yes Nausea/Vomiting: No Temp > 96.8F: Yes Pain Manageable: Yes Adequeate Hydration: Yes Anesthesia Complications: No Block Receding Appropriately: Not Applicable Patient on Ventilator: No
[2021-09-06 14:01] VITALS: BP 138/89
--- NOTE | 2021-09-06 14:26 | Operative Report ---
Operative Report Operative Report: Date of procedure: 09/06/21 Pre-op diagnosis: symptomatic cholelithiasis Post-op diagnosis: other (chronic calculus cholecystitis) Procedure: lap cholecystectomy Anesthesia: GETA, local Findings: Thickening at gallbladder neck with chronic inflammation Obstruction of gallbladder - hydrops Surgeon: DEMETRICE MARIN (Zipper Machine Operator: Nikia Monte) Estimated blood loss: minimal Pathology: list (gallbladder) Specimen disposition: to lab Condition: stable Hospital course: Pt observed in PACU and discharged to home in stable condition when criteria met Condition at discharge: Good Disposition: 01 HOME / SELF CARE / HOMELESS HPI an indication: 61-year-old male who presented to the surgery clinic with complaints of intermittent sharp right upper quadrant abdominal pain. He had an acute episode of this pain prior to presentation and was seen in an outside hospital ER. An ultrasound was performed which showed gallstones in the gallbladder without evidence of cholecystitis or bile duct dilatation. The patient's labwork was unremarkable. It was recommended that the patient undergo cholecystectomy. All risks, benefits, alternatives to surgery were discussed in detail and questions answered. Consent was obtained for laparoscopic, possible open cholecystectomy, possible cholangiogram. Procedure in detail: The patient was identified in the preoperative area and taken back to the operating room, placed on the operating room table in supine position. After anesthesia was induced, the abdomen was prepped and draped in usual sterile fashion and timeout was performed. Local anesthetic was infiltrated into all of the skin incision sites. A supraumbilical incision was made through which a Veress needle was inserted. The Veress needle position was confirmed using the saline drop test and the abdomen insufflated to 15 mmHg without incident. The Veress needle was then removed and a 5 mm Optiview trocar was placed through this incision. The abdomen was inspected and there was no underlying injury to the abdominal structures. An additional 12 mm subxyphoid port, 5 mm right medial and lateral abdominal ports were placed under direct visualization. The patient was then placed into reverse Trendelberg and tilted to the left. There was a single adhesion from the omentum to the anterior abdominal wall to the right of the falciform. This was dissected using hook electrocautery. The gallbladder was grasped and retracted cephalad and above the liver. The cystic duct and artery were carefully skeletonized. The medial and lateral peritoneal attachments to the gallbladder were dissected using a combination of blunt dissection with the [place] and hook electrocautery. There was thickening of the gallbladder neck indicating chronic inflammation. There was also a medium size stone at the neck of the gallbladder. The cystic duct and artery were the only 2 structures seen entering the gallbladder and the critical view was successfully obtained. 3 clips were placed on the proximal aspect of the cystic duct and 1 distally and this was transected in between the clips using EndoShears. 2 clips were placed on the proximal aspect of the cystic artery and 1 distally this was transected in between the clips using EndoShears. The gallbladder was dissected from the liver bed using electrocautery. During dissection a small hole was created in the body of the g allbladder and there was clear bile expressed. Once the entirety of the gallbladder was dissected from the liver bed, the gallbladder was placed into a Endo Catch bag and removed from the abdomen via the 12mm port. The gallbladder fossa was then inspected and there was no identifiable bleeding or bile leakage. Hemostasis was ensured. The clips on the cystic duct and artery were visualized and intact. Morison's pouch and the gallbladder fossa were irrigated and the irrigant returned clear. The patient was then placed into neutral position. The 12 mm port fascia was closed with interrupted 0 Vicryl suture using the Elio Juarez device. The remaining ports were removed under direct visualization. Skin incisions were closed with 4-0 Monocryl subcuticular stitches and skin glue. All skin incisions were once again infiltrated with local anesthetic. At the end case all sponge, instrument, sharp counts were correct 2. The patient was awoken from anesthesia, extubated, and taken to PACU in stable condition.
== END 2021-09-06 07:24 | disposition home or self-care (01) ==
LOC: OR 07:23
PROVIDERS: ATTEND Surgery
DX: K80.20 Calculus of gallbladder without cholecystitis without obstruction (principal); E78.00 Pure hypercholesterolemia, unspecified; I10 Essential (primary) hypertension; K21.9 Gastro-esophageal reflux disease without esophagitis; Z79.899 Other long term (current) drug therapy; Z98.890 Other specified postprocedural states; Z87.19 Personal history of other diseases of the digestive system
CPT/HCPCS: 47562; 88304; J0690; J1170; J2250; J2405; J2704; J3010; J3490; J7120; J7050

== ENCOUNTER 2021-10-14 22:11 | Emergency (ER) | payer SELFPAY ==
[2021-10-14 22:15] VITALS: BP 158/90
[2021-10-15] MEDS ORDERED: SODIUM CHLORIDE 0.9% 1000 ML 1,000 ML ONE (23:44)
== END 2021-10-15 07:38 | disposition left against medical advice (07) ==
LOC: ED 22:11
DX: R10.9 Unspecified abdominal pain (principal); Z53.21 Procedure and treatment not carried out due to patient leaving prior to being seen by health care provider
CPT/HCPCS: J7030

== ENCOUNTER 2021-11-06 12:46 | Emergency (ER) | payer SELFPAY ==
[2021-11-06 17:37] LABS: Hematocrit 48.5 % (35.5-45.6); Hemoglobin 16.2 gm/dl (11.8-15.2); Mean Corpuscular HGB Conc 33 % (32-34); Mean Corpuscular Volume 97 fl (84-94); Platelet Count 240 K/mm3 (140-440); Red Blood Count 5.01 M/mm3 (3.65-5.03); Red Cell Distribution Width 14.4 % (13.2-15.2)
[2021-11-06 18:08] LABS: Alanine Aminotransferase 41 units/L (7-56); Albumin 4.6 g/dL (3.9-5); BUN/Creatinine Ratio 20; Blood Urea Nitrogen 16 mg/dL (9-20); Calcium 9.9 mg/dL (8.4-10.2); Hemolysis Index 9
--- NOTE | 2021-11-06 19:18 | Cat Scan Report ---
CT ABDOMEN AND PELVIS WITH CONTRAST INDICATION: LUQ PAIN; DON'T WAIT FOR LAB CONTRAST: 100 cc Omnipaque 300 IV COMPARISON: 12/14/[address] scans at this location are performed using CT dose reduction for ALARA by means of automated e xposure control. FINDINGS: Lung bases show probable scarring in both lower lobes, more on the right. No obvious pneumo maximo infiltrate is seen. No pneumoperitoneum. No significant abdominal wall herniation. Small cyst in left lobe of liver. Gall bladder removed. No biliary dilatation. Small right renal cyst and tiny probable cyst. No urinary obs tructive change. No evidence of bowel obstruction. Appendix normal. Inflammatory changes. No lymphade nopathy. No free fluid. Pelvic masses. Prostate mildly prominent. Seminal vesicles symmetric. IMPRESSION: No acute abnormalities are seen Signer Name: Juan R Hodges MD Signed: 11/06/2021 7:14 PM Workstation Name: [id number]
--- NOTE | 2021-11-06 19:31 | Emergency Department Report ---
ED General Adult HPI - General Chief complaint: Abdominal Pain Stated complaint: ABDOMINAL PAIN PUI?: No Time Seen by Provider: 11/06/21 17:15 Source: patient Mode of arrival: Ambulatory Limitations: Language Barrier - History of Present Illness Initial comments: 61-year-old male came in today with concerns of left-sided abdominal pain which according patient has been going for the past 1 to 2 years. However for the past 1 to 2 days been getting worse and patient states his left upper quadrant. Patient denies any other symptoms denies fever chill night sweat dizziness blurred vision lightheadedness headache tinnitus ear pain runny nose sore throat loss of taste or smell chest pain palpitation short breath cough nausea vomiting diarrhea constipation joint pain muscle pain new rash and heat or cold intolerance. Severity scale (0 -10): 5 - Related Data Home Medications Medication Instructions Recorded Confirmed Last Taken Famotidine [Pepcid] 20 mg PO QHS 09/01/21 09/01/21 Unknown lisinopriL [Zestril TAB] 20 mg PO QHS 09/01/21 09/01/21 Unknown Previous Rx's Medication Instructions Recorded Last Taken Type HYDROcodone/APAP 5-325 [[place] 1 each PO Q6HR PRN #15 tablet 09/06/21 Unknown Rx 5/325] Ibuprofen 400 mg PO Q8H 3 Days #9 cap 11/06/21 Unknown Rx Allergies Allergy/AdvReac Type Severity Reaction Status Date / Time No Known Allergies Allergy Verified 03/19/15 04:44 ED Review of Systems ROS: Stated complaint: ABDOMINAL PAIN Other details as noted in HPI Comment: All other systems reviewed and negative Constitutional: no symptoms reported, see HPI Eyes: as per HPI ENT: as per HPI Respiratory: no symptoms reported, see HPI Cardiovascular: as per HPI Endocrine: no symptoms reported, see HPI Gastrointestinal: as per HPI Musculoskeletal: as per HPI Skin: as per HPI Neurological: as per HPI Psychiatric: as per HPI Hematological/Lymphatic: as per HPI ED Past Medical Hx - Past Medical History Previous Medical History?: Yes Hx Hypertension: Yes (X 7 YRS) Hx GERD: Yes Additional medical history: BARRETTS ESOPHAGEAL, CHRONIC GAStTRITIS, HIATAL HERNIA - Surgical History Past Surgical History?: Yes Hx Cholecystectomy: Yes - Social History Smoking Status: Never Smoker Substance Use Type: None - Medications Home Medications: Home Medications Medication Instructions Recorded Confirmed Last Taken Type Famotidine [Pepcid] 20 mg PO QHS 09/01/21 09/01/21 Unknown History lisinopriL [Zestril TAB] 20 mg PO QHS 09/01/21 09/01/21 Unknown History HYDROcodone/APAP 5-325 [[place] 1 each PO Q6HR PRN #15 tablet 09/06/21 Unknown Rx 5/325] Ibuprofen 400 mg PO Q8H 3 Days #9 cap 11/06/21 Unknown Rx ED Physical Exam - General Limitations: No Limitations, Language Barrier (PATIENT SPOKE BROKEN JAPANESE BUT WAS ABLE TO COMMUNICATE WITH ME AND UNDERSTOOD WHAT I WAS SAYING ) General appearance: alert, in no apparent distress - Head Head exam: Present: atraumatic, normocephalic, normal inspection - Eye Eye exam: Present: normal appearance, PERRL, EOMI Pupils: Present: normal accommodation - ENT ENT exam: Present: normal exam, mucous membranes moist - Neck Neck exam: Present: normal inspection, full ROM - Respiratory Respiratory exam: Present: normal lung sounds bilaterally - Cardiovascular Cardiovascular Exam: Present: regular rate, normal rhythm, normal heart sounds - GI/Abdominal GI/Abdominal exam: Present: soft, other (NO RASH/LESION AT ALL ON TRUCK REGION) - Extremities Exam Extremities exam: Present: normal inspection, full ROM, normal capillary refill - Back Exam Back exam: Present: normal inspection, full ROM - Neurological Exam Neurological exam: Present: alert, altered, oriented X3 - Psychiatric Psychiatric exam: Present: normal affect, normal mood - Skin Skin exam: Present: normal color ED Course Vital Signs 11/06/21 11/06/21 11/06/21 13:01 16:52 16:57 Temperature 98.3 F 97.3 F L 97.3 F L Pulse Rate 60 53 L 53 L Respiratory 16 14 15 Rate Blood Pressure 135/84 148/85 Blood Pressure 145/85 [Right] O2 Sat by Pulse 96 100 100 Oximetry 11/06/21 18:30 Temperature Pulse Rate 53 L Respiratory 14 Rate Blood Pressure Blood Pressure 148/84 [Right] O2 Sat by Pulse 100 Oximetry - Reevaluation(s) Reevaluation #1: 11/06/21 19:43 Labs and image completely unremarkable. Patient informed to make a follow-up appoint with primary care provider to be seen within 3 to 5 days. ED Medical Decision Making - Lab Data Result diagrams: 11/06/21 17:28 11/06/21 17:28 Critical care attestation.: If time is entered above; I have spent that time in minutes in the direct care of this critically ill patient, excluding procedure time. ED Disposition Clinical Impression: Left upper quadrant abdominal pain Disposition: HOME / SELF CARE / HOMELESS Is pt being admited?: No Does the pt Need Aspirin: No Condition: Stable Instructions: Abdominal Pain, Adult Prescriptions: Ibuprofen 400 mg PO Q8H 3 Days #9 cap Referrals: KAM FERRELL MD [Primary Care Provider] - 3-5 Days Time of Disposition: 19:44
[2021-11-06 20:24] VITALS: BP 120/60
== END 2021-11-06 19:51 | disposition home or self-care (01) ==
LOC: ED 12:46
DX: R10.12 Left upper quadrant pain (principal); I10 Essential (primary) hypertension; K21.9 Gastro-esophageal reflux disease without esophagitis; Z90.49 Acquired absence of other specified parts of digestive tract; Z79.899 Other long term (current) drug therapy
CPT/HCPCS: 36415; 74177; 80053; 83690; 83735; 85027; 99284; Q9967